=== PATIENT | male | born 1955 | race Caucasian/White ===

== ENCOUNTER 2017-02-19 13:29 | Emergency (ER) | payer OTHER ==
[~2017-02-19] VITALS: Ht 177.8 cm; Wt 71.7 kg
[~2017-02-19 13:29] MED LIST: ASPI1CHW12 PO; ATOR-24 PO; FENO160T PO; IBUP-1427 PO; OXYC-57 PO; PANT40TA PO
[2017-02-19 13:37] VITALS: TEMP 36.6; Ht 177.8 cm; Wt 71.7 kg
[2017-02-19] MEDS ORDERED: SODIUM CHLORIDE 0.9% 1000ML 1,000 ML IV STA (14:22)
[2017-02-19] MEDS ORDERED: OPTIRAY 320 IV PRN (14:30)
[2017-02-19 14:32] LABS: BASO % 0.1 %; BASO ABS # 0.01 K/uL (0-0.2); COMPLETE YES; EOS % 0.1 %; HEMATOCRIT 41.2 % (42-52); IG% 0.2 %; LYMPH % 6.3 %; LYMPH ABS # 0.62 K/uL (1.2-3.4); MEAN CELL VOLUME 79.1 fL (80-100); MEAN CORPUSCULAR HEMOGLOBIN 27.6 pg (25-34); MEAN PLATELET VOLUME 10.5 fL (7.4-10.4); MONO % 4.2 %; NEUT % 89.1 %; PLATELET COUNT 230 K/uL (130-400); RED BLOOD COUNT 5.21 M/uL (4.7-6.1); WHITE BLOOD COUNT 9.81 K/uL (4.8-10.8)
[2017-02-19 14:40] LABS: BUN/CREATININE RATIO 16.9 (10-20); CALCIUM 10.3 mg/dl (8.5-10.1); CREATININE 1.2 mg/dl (0.60-1.40); POTASSIUM 3.7 mmol/L (3.5-5.1)
[2017-02-19 14:42] LABS: ALB/GLOB RATIO 1.1 (0.9-2)
--- NOTE | 2017-02-19 14:49 | EMERGENCY ROOM VISIT NOTE ---
History First contact with patient: 14:04 Chief Complaint: ABDOMINAL PAIN Stated Complaint: PAIN IN RIGHT SIDE OF ABDOMAN Nursing Triage Summary: triage note: pt reports right abd pain since this morning. pain started at 0930 vomited after drinking water. History of Present Illness The patient is a 61 year old male who presents to the Emergency Room with complaints of right-sided abdominal pain which began this morning. The patient reports that he developed pain in the right side of his abdomen approximately 5 hours ago. He reports it has been gradually worsening since then. He took ibuprofen without relief. The patient attempted to drink water and states that he vomited immediately afterward. He has had no further episodes of vomiting and denies any nausea at this time. He rates his current discomfort a 5/10. He does not identify any aggravating or alleviating factors. He took some ibuprofen with little relief of the pain. He denies any previous episodes of pain or abdominal surgeries. He denies any kidney stones. He denies any chest pain, shortness of breath, urinary symptoms, blood in his urine, fevers/chills, or changes in bowel movements. The patient has a history of hyperlipidemia and mitral valve prolapse and is otherwise healthy. The patient denies any recent trauma. Review of Systems A complete 10-point Review of Systems was discussed with the patient, with pertinent positives and negatives listed in the History of Present Illness. All remaining Review of Systems questions can be considered negative unless otherwise specified. Past Medical/Surgical History Medical Problems: (1) Esophageal reflux (2) Heart murmur (3) Mitral valve disorder (4) Villous adenoma of colon Social History Smoking Status: Never Smoker Marital Status: Occupation Status: employed Current/Historical Medications Scheduled Aspirin (Aspirin 81 Low Dose), 81 MG PO HS Atorvastatin (Lipitor), 40 MG PO HS Fenofibrate (Tricor), 160 MG PO HS Ondasetron Odt (Zofran Odt), 4 MG SL Q6H Pantoprazole (Protonix), 40 MG PO QAM Tamsulosin Hcl (Flomax), 0.4 MG PO DAILY Scheduled PRN Ibuprofen Tab (Motrin), 600 MG PO Q6H PRN for Pain Oxycodone/Acetaminophen 5MG/325MG (Percocet 5MG/325MG), 1-2 TABS PO Q4H PRN for Pain Allergies Coded Allergies: No Known Allergies (Unverified , 02/19/17) Physical Exam Vital Signs Date Time Temp Pulse Resp B/P Pulse Ox O2 Delivery O2 Flow Rate FiO2 02/19/17 16:55 76 18 141/80 100 Room Air 02/19/17 15:36 78 18 138/92 100 Room Air 02/19/17 13:37 36.6 68 18 145/88 97 Room Air Physical Exam VITALS: Vitals are noted on the nurse's note and reviewed by myself. Vital signs stable. GENERAL: This is a 61-year-old male, in no acute distress, nondiaphoretic, well- developed well-nourished. SKIN: There is a small area of ecchymosis noted to the right mid back. HEENT: Normocephalic. PERRLA. EOMI. Nares patent. Mucous membranes moist. Neck is supple without nuchal rigidity. HEART: Regular rate and rhythm without murmurs gallops or rubs. LUNGS: Clear to auscultation bilaterally without wheezes, rales or rhonchi. ABDOMEN: Positive bowel sounds x 4. Soft, moderate tenderness of the right lower quadrant. No guarding or rebound tenderness. Negative Hubbard sign. NEURO: Patient was alert and oriented to person place and time. Medical Decision & Procedures ER Provider Diagnostic Interpretation: ABDOMEN AND PELVIS CT WITH IV CONTRAST FINDINGS: Mild nonspecific basilar parenchymal prominence. Slight basilar pleural thickening. Mild fatty infiltration of liver. Several small hypodensities less than 5 mm 2 small to quantify. Mild small bowel reactive ileus. No obstructive characteristics. Mild to moderate right hydroureteronephrosis. This appears to be secondary to an obstructing calculus distal right ureter having a maximum dimension of 2 mm. The distended right renal pelvis contains a 1.3 cm calculus. Several small bilateral renal cysts. 5 mm nonobstructing calcification lower aspect left kidney. Mild right renal perinephric change. Inguinal regions are unremarkable. There is a right-sided hydrocele. The may be a small left hydrocele. IMPRESSION: 1. 2 mm obstructing calculus distal right ureter. 2. Moderate right renal hydroureteronephrosis with a small amount of right perinephric fluid. 3. Additional 1.3 cm calculus within a distended right renal pelvis. 4. Bilateral renal cysts. 5. Nonobstructing lower pole left renal calculus. 6. Mild reactive ileus. Laboratory Results 02/19/17 14:00 Red Blood Count 5.21, Mean Corpuscular Volume 79.1, Mean Corpuscular Hemoglobin 27.6, Mean Corpuscular Hemoglobin Concent 35.0, Mean Platelet Volume 10.5, Neutrophils (%) (Auto) 89.1, Lymphocytes (%) (Auto) 6.3, Monocytes (%) (Auto) 4.2, Eosinophils (%) (Auto) 0.1, Basophils (%) (Auto) 0.1, Neutrophils # (Auto) 8.74, Lymphocytes # (Auto) 0.62, Monocytes # (Auto) 0.41, Eosinophils # (Auto) 0.01, Basophils # (Auto) 0.01 02/19/17 14:00 Test 02/19/17 14:00 02/19/17 14:10 White Blood Count 9.81 K/uL (4.8-10.8) Red Blood Count 5.21 M/uL (4.7-6.1) Hemoglobin 14.4 g/dL (14.0-18.0) Hematocrit 41.2 % (42-52) Mean Corpuscular Volume 79.1 fL (80-100) Mean Corpuscular Hemoglobin 27.6 pg (25-34) Mean Corpuscular Hemoglobin Concent 35.0 g/dl (32-36) Platelet Count 230 K/uL (130-400) Mean Platelet Volume 10.5 fL (7.4-10.4) Neutrophils (%) (Auto) 89.1 % Lymphocytes (%) (Auto) 6.3 % Monocytes (%) (Auto) 4.2 % Eosinophils (%) (Auto) 0.1 % Basophils (%) (Auto) 0.1 % Neutrophils # (Auto) 8.74 K/uL (1.4-6.5) Lymphocytes # (Auto) 0.62 K/uL (1.2-3.4) Monocytes # (Auto) 0.41 K/uL (0.11-0.59) Eosinophils # (Auto) 0.01 K/uL (0-0.5) Basophils # (Auto) 0.01 K/uL (0-0.2) RDW Standard Deviation 36.7 fL (36.4-46.3) RDW Coefficient of Variation 12.8 % (11.5-14.5) Immature Granulocyte % (Auto) 0.2 % Immature Granulocyte # (Auto) 0.02 K/uL (0.00-0.02) Anion Gap 8.0 mmol/L (3-11) Est Creatinine Clear Calc Drug Dose 65.6 ml/min Estimated GFR () 75.2 Estimated GFR (Non- 64.9 BUN/Creatinine Ratio 16.9 (10-20) Calcium Level 10.3 mg/dl (8.5-10.1) Total Bilirubin 0.5 mg/dl (0.2-1) Aspartate Amino Transf (AST/SGOT) 24 U/L (15-37) Alanine Aminotransferase (ALT/SGPT) 33 U/L (12-78) Alkaline Phosphatase 75 U/L (45-117) Total Protein 8.0 gm/dl (6.4-8.2) Albumin 4.2 gm/dl (3.4-5.0) Globulin 3.8 gm/dl (2.5-4.0) Albumin/Globulin Ratio 1.1 (0.9-2) Lipase 197 U/L (73-393) Urine Color YELLOW Urine Appearance CLEAR (CLEAR) Urine pH 6.0 (4.5-7.5) Urine Specific Enloe 1.020 (1.000-1.030) Urine Protein NEG (NEG) Urine Glucose (UA) NEG (NEG) Urine Ketones NEG (NEG) Urine Occult Blood NEG (NEG) Urine Nitrite NEG (NEG) Urine Bilirubin NEG (NEG) Urine Urobilinogen NEG (NEG) Urine Leukocyte Esterase NEG (NEG) Medications Administered Medications (Trade) Dose Ordered Sig/Juan Route Start Time Stop Time Status Last Admin Dose Admin Sodium Chloride (Nss 1000ml) 1,000 ml @ 999 mls/hr Q1H1M STAT IV 02/19/17 14:22 02/19/17 15:22 DC 02/19/17 14:22 999 MLS/HR Ketorolac Tromethamine (Toradol Inj) 30 mg NOW STAT IV 02/19/17 15:34 02/19/17 15:35 DC 02/19/17 15:38 30 MG Medical Decision Differential diagnosis includes renal calculus, pyelonephritis, small bowel obstruction, appendicitis, cholecystitis, pancreatitis, gastroenteritis, colitis , testicular torsion, among others. The patient was evaluated as above. Labs were drawn and IV access was obtained. Imaging studies were performed and read by radiology as above. The patient was medicated with 1 L normal saline solution and 30 mg Toradol IV. The patient was reassessed multiple times during their stay in the emergency department and remained in stable condition. The patient is a 56-lbiz-lod-year-old male who presents today complaining of right lower quadrant abdominal pain. The patient was moderately tender over the right lower quadrant. Labs revealed no leukocytosis, anemia or concerning electrolyte abnormalities. Urinalysis was not suggestive of infection and did not show any blood. CT of the abdomen and pelvis did show a distal right ureteral stone with moderate hydronephrosis. I do feel the patient will likely be able to pass the stone without surgical management. Will be discharged home with a urine strainer, analgesics, antiemetics and Flomax. He was given follow- up information for urology. He will return for worsening pain or any new/ concerning symptoms. Based on the patient's presentation, lab results, and imaging studies, I feel the patient is stable for outpatient treatment. The patient's case was reviewed with Dr. Rosenberg, ED attending physician, who agreed with my assessment and treatment plan. Discharge instructions were reviewed with the patient. The patient verbalized understanding of my assessment and treatment plan and was discharged home in good condition. [place] Drug Monitoring Program Search Results: patient reviewed within database, no issues identified Impression Primary Impression: Right distal ureteral calculus Departure Information Dispostion Home / Self-Care Condition GOOD Prescriptions Ondasetron Odt (ZOFRAN ODT) 4 Mg Tab 4 MG SL Q6H for Nausea, #15 TAB Prov: Silvia Landers PA-C 02/19/17 Oxycodone/Acetaminophen 5MG/325MG (PERCOCET 5MG/325MG) Tab 1-2 TABS PO Q4H Y for Pain, #20 TAB For Initial Treatment Prov: iSlvia Landers PA-C 02/19/17 Tamsulosin Hcl (FLOMAX) 0.4 Mg Cap 0.4 MG PO DAILY for 10 Days, #10 CAP Prov: Silvia Landers PA-C 02/19/17 Referrals Syd Livingston M.D. (PCP) Deng Marley M.D. Patient Instructions My [facility] Additional Instructions You have been treated in the Emergency Department today for a Kidney Stone ( Nephrolithiasis). You have been prescribed Percocet to be used for pain control. This is a narcotic medication. You cannot drive or consume alcohol while on this medicine. This medicine should only be used for pain that cannot be controlled with [id number] pain medicines. This medication may cause constipation, so you should be taking a stool softener while taking this medication. You have been prescribed and Zofran to be used for any nausea or vomiting. Take as prescribed. You have been prescribed Flomax 0.4 mg to be taken ONCE daily. This medicine has been prescribed as it can help relax the smooth muscles of the urinary tract increasing transit time of the kidney stone. For pain control, you can use the following [id number] medicines (if >12 yo): - Regular strength (325mg/tab) Tylenol (acetaminophen) 2 tabs every 4-6 hours as needed. Do not exceed 12 tablets in a 24 hour period. Avoid taking more than 4 grams (4000 mg) of Tylenol per day. This includes any other sources of acetaminophen you may take on a regular basis. - Regular strength (200 mg/tab) Advil (ibuprofen) 1-2 tabs every 4-6 hours as needed. Do not exceed a dose of 3200 mg per day. You have been provided a strainer and specimen collection cup. You should strain your urine to collect any passed stones. Your stones can be placed into the specimen cup and taken to your Urologist for further evaluation. You have been provided the contact information for the on-call Urologist. If you do not pass the stone within 3-4 days, call them to schedule a follow-up appointment. Return to the Emergency Department if your symptoms persist despite the treatment plan outlined above or if you develop the following symptoms: intractable pain, fever, chills, or large amounts of blood in your urine.
[2017-02-19 14:56] LABS: URINE APPEARANCE CLEAR (CLEAR); URINE BILIRUBIN NEG (NEG); URINE COLOR YELLOW; URINE NITRITE NEG (NEG); UROBILINOGEN NEG (NEG); ZZUR CULT IF INDIC CLEAN CATCH NO
[2017-02-19 15:06] LABS: MANUAL MICROSCOPIC REQUIRED? NO; REVIEW REQ? NO
--- NOTE | 2017-02-19 15:31 | DIAGNOSTIC IMAGING REPORT ---
ABDOMEN AND PELVIS CT WITH IV CONTRAST CT DOSE: 570.60 mGy.cm HISTORY: Pain RLQ pain, vomiting TECHNIQUE: Multiaxial CT images of the abdomen and pelvis were performed following the use of intravenous contrast. COMPARISON STUDY: None. FINDINGS: Mild nonspecific basilar parenchymal prominence. Slight basilar pleural thickening. Mild fatty infiltration of liver. Several small hypodensities less than 5 mm 2 small to quantify. Mild small bowel reactive ileus. No obstructive characteristics. Mild to moderate right hydroureteronephrosis. This appears to be secondary to an obstructing calculus distal right ureter having a maximum dimension of 2 mm. The distended right renal pelvis contains a 1.3 cm calculus. Several small bilateral renal cysts. 5 mm nonobstructing calcification lower aspect left kidney. Mild right renal perinephric change. Inguinal regions are unremarkable. There is a right-sided hydrocele. The may be a small left hydrocele. IMPRESSION: 1. 2 mm obstructing calculus distal right ureter. 2. Moderate right renal hydroureteronephrosis with a small amount of right perinephric fluid. 3. Additional 1.3 cm calculus within a distended right renal pelvis. 4. Bilateral renal cysts. 5. Nonobstructing lower pole left renal calculus. 6. Mild reactive ileus. Electronically signed by: Leonid Escalera M.D. 02/19/2017 3:30 PM Dictated Date/Time: 02/19/2017 3:26 PM
[2017-02-19] MEDS ORDERED: KETOROLAC TROMETHAMINE 30 MG/ML VIAL IV STA (15:34)
[2017-02-19] MEDS ORDERED: OXYC-57 PO (16:12)
[2017-02-19] MEDS ORDERED: ONDA4TAB10 SL (16:12)
[2017-02-19] MEDS ORDERED: TAMS0.4C38 PO (16:12)
[2017-02-19 16:55] VITALS: BP 141/80; PULSE 76; O2SAT 100
[2017-07-02] MEDS ORDERED: OXYC-57 PO (07:13)
[2017-09-16] MEDS ORDERED: HYG/25 PO (12:21)
[2017-10-08] MEDS ORDERED: HYDR-5688 PO (10:40)
== END 2017-02-19 16:57 | disposition home or self-care (01) ==
LOC: C.EDB 13:31
DX: N13.2 Hydronephrosis with renal and ureteral calculous obstruction (principal); E78.5 Hyperlipidemia, unspecified; I34.1 Nonrheumatic mitral (valve) prolapse; K21.9 Gastro-esophageal reflux disease without esophagitis; Z79.82 Long term (current) use of aspirin; Z79.899 Other long term (current) drug therapy

== ENCOUNTER → 2017-05-07 | Outpatient (CLI) | payer OTHER ==
[~2017-05-07] MED LIST changes: +HYDR-5688 PO; +HYG/25 PO; -IBUP-1427 PO; +ONDA4TAB10 SL
[2017-05-07 10:47] LABS: BASO % 0.8 %; BASO ABS # 0.04 K/uL (0-0.2); COMPLETE YES; EOS % 5.2 %; IG% 0.2 %; LYMPH % 31.6 %; LYMPH ABS # 1.59 K/uL (1.2-3.4); MEAN CELL VOLUME 81.3 fL (80-100); MEAN CORPUSCULAR HGB CONC 33.2 g/dl (32-36); MEAN PLATELET VOLUME 10.9 fL (7.4-10.4); MONO % 5.8 %; NEUT % 56.4 %; PLATELET COUNT 234 K/uL (130-400); RED BLOOD COUNT 5.04 M/uL (4.7-6.1); WHITE BLOOD COUNT 5.03 K/uL (4.8-10.8)
[2017-05-07 10:59] LABS: ALT/SGPT 27 U/L (12-78); AST/SGOT 20 U/L (15-37); BLOOD UREA NITROGEN 20 mg/dl (7-18); BUN/CREATININE RATIO 21.8 (10-20); CARBON DIOXIDE 27 mmol/L (21-32); CHLORIDE 106 mmol/L (98-107); CREATININE 0.91 mg/dl (0.60-1.40); GLUCOSE 92 mg/dl (70-99); POTASSIUM 3.7 mmol/L (3.5-5.1); SODIUM 142 mmol/L (136-145); TRIGLYCERIDES 47 mg/dl (0-150); VERY LOW DENSITY LIPOPROT CALC 9 mg/dl
[2017-05-07 11:09] LABS: CHOLESTEROL 125 mg/dl (0-200); CHOLESTEROL/HDL RATIO 2.4; HDL CHOLESTEROL 53 mg/dl; LDL CHOLESTEROL CALCULATED 63 mg/dl; PROSTATE SPECIFIC ANTIGEN 0.684 ng/ml (0.000-4.000)
[2017-05-07 11:25] LABS: ESTIMATED AVERAGE GLUCOSE 128 mg/dl; HA1C FLAG Normal (Normal)
[2017-05-07 11:33] LABS: URINE APPEARANCE CLOUDY (CLEAR); URINE BILIRUBIN NEG (NEG); URINE COLOR YELLOW; URINE NITRITE NEG (NEG); URINE SPECIFIC GRAVITY 1.019 (1.000-1.030); UROBILINOGEN NEG (NEG)
[2017-05-07 11:35] LABS: MANUAL MICROSCOPIC REQUIRED? NO; REVIEW REQ? NO
[2017-05-07 12:19] LABS: CALCIUM 9.4 mg/dl (8.5-10.1)
== END | disposition home or self-care (01) ==
LOC: C.LABBC 08:38
PROVIDERS: ATTEND Internal Medicine
DX: E78.00 Pure hypercholesterolemia, unspecified (principal)

== ENCOUNTER → 2017-06-15 | Outpatient (CLI) | payer OTHER ==
[~2017-06-15] MED LIST changes: -HYDR-5688 PO; -HYG/25 PO
--- NOTE | 2017-06-15 09:13 | DIAGNOSTIC IMAGING REPORT ---
KUB CLINICAL HISTORY: Nephrolithiasis. COMPARISON STUDY: CT of the abdomen and pelvis February 19, 2017. FINDINGS: A 1.9 x 1.1 cm right renal pelvis calculus is unchanged. There is an 8 mm calculus within the lower pole of the left kidney. A few smaller bilateral renal calculi are noted. No ureteral calculi are identified. The distal right ureteral calculus shown on CT of February 19, 2017 is not visualized. The bowel gas pattern is normal. IMPRESSION: 1. 1.9 x 1.1 cm right renal pelvis calculus and bilateral nephrolithiasis. 2. No ureteral calculi. Electronically signed by: Flaco Asher M.D. 06/15/2017 9:11 AM Dictated Date/Time: 06/15/2017 9:09 AM
== END | disposition home or self-care (01) ==
LOC: C.RADBC 08:56
PROVIDERS: ATTEND Urology
DX: N20.0 Calculus of kidney (principal)

== ENCOUNTER → 2017-06-16 | Outpatient (CLI) | payer OTHER | END | disposition home or self-care (01) | LOC: C.LABSPEC 17:02 | PROVIDERS: ATTEND Urology | DX: N20.0 Calculus of kidney (principal) ==

== ENCOUNTER → 2017-06-18 | Outpatient (CLI) | payer OTHER ==
--- NOTE | 2017-06-18 12:38 | DIAGNOSTIC IMAGING REPORT ---
CHEST 2 VIEWS ROUTINE CLINICAL HISTORY: 61 years-old Male presenting with nephrolithiasis. TECHNIQUE: PA and lateral views of the chest were obtained. COMPARISON: 10/02/2016. FINDINGS: Cardiomediastinal silhouette normal. Lungs and pleural spaces clear. Multilevel degenerative changes of the thoracic spine. Upper abdomen normal. IMPRESSION: 1. No acute cardiopulmonary disease. Electronically signed by: Jeronimo Mosquera M.D. 06/18/2017 12:37 PM Dictated Date/Time: 06/18/2017 12:36 PM
[2017-06-18 13:31] LABS: BASO % 0.9 %; BASO ABS # 0.04 K/uL (0-0.2); COMPLETE YES; HEMATOCRIT 41.2 % (42-52); LYMPH % 34.1 %; LYMPH ABS # 1.47 K/uL (1.2-3.4); MEAN CELL VOLUME 81.3 fL (80-100); MEAN CORPUSCULAR HEMOGLOBIN 28.2 pg (25-34); MEAN CORPUSCULAR HGB CONC 34.7 g/dl (32-36); MEAN PLATELET VOLUME 11.4 fL (7.4-10.4); PLATELET COUNT 230 K/uL (130-400); RED BLOOD COUNT 5.07 M/uL (4.7-6.1); WHITE BLOOD COUNT 4.31 K/uL (4.8-10.8)
[2017-06-18 13:42] LABS: BLOOD UREA NITROGEN 14 mg/dl (7-18); BUN/CREATININE RATIO 16.9 (10-20); CALCIUM 9.7 mg/dl (8.5-10.1); CARBON DIOXIDE 27 mmol/L (21-32); CHLORIDE 109 mmol/L (98-107); CREATININE 0.85 mg/dl (0.60-1.40); GLUCOSE 96 mg/dl (70-99); POTASSIUM 3.7 mmol/L (3.5-5.1); SODIUM 141 mmol/L (136-145)
== END | disposition home or self-care (01) ==
LOC: C.RADBC 11:05
PROVIDERS: ATTEND Urology
DX: N20.0 Calculus of kidney (principal); N40.0 Benign prostatic hyperplasia without lower urinary tract symptoms

== ENCOUNTER → 2017-07-02 | Day surgery (SDC) | payer OTHER ==
[2017-06-28 13:18] VITALS: Ht 177.8 cm; Wt 71.8 kg
--- NOTE | 2017-07-01 18:07 | DIAGNOSTIC IMAGING REPORT ---
KUB CLINICAL HISTORY: N20.0 Nephrolithiasis PREOP STUDY COMPARISON STUDY: 06/15/2017 FINDINGS: There is no pathologic bowel dilatation. A 21 mm calcification projects over the right renal pelvis. There are multiple left renal ossifications consistent with calculi. The largest is a lower pole cluster measuring 8 mm in aggregate. IMPRESSION: Bilateral nephrolithiasis. Electronically signed by: Simeon Gates M.D. 07/01/2017 6:06 PM Dictated Date/Time: 07/01/2017 6:04 PM
[~2017-07-02] VITALS: Ht 177.8 cm; Wt 71.8 kg
[~2017-07-02] MED LIST changes: +ATROPINE SULFATE 0.1 MG/ML 5ML SYR IV PRN; +CIPROFLOXACIN / D5W 400 MG IV SCH; +DEXAMETHASONE SOD INJ 4 MG/ML VIAL ONE; +EpHEDrine SULFATE INJ 50 MG/ML AMP IV PRN; +FENTANYL CITRATE INJ 50 MCG/1 ML 2 ML VIAL ONE; +LACTATED RINGER'S 1000ML 1,000 ML IV SCH; +LIDOCAINE HCL 2% 2 ML VIAL (20MG/ML) ONE; +MIDAZOLAM HCL 1 MG/ML 2ML VIAL ONE; -ONDA4TAB10 SL; +ONDANSETRON INJ 2 MG/ML 2 ML VIAL ONE; +OXYCODONE/ACETAMINOPHEN 5-325 TAB PO PRN; +PROPOFOL IV EMULSION 10 MG/ML 20 ML VIAL IV ONE
--- NOTE | 2017-07-02 06:42 | History & Physical Bridge Note ---
H&P Re-Evaluation Bridge Note: I have examined the patient, reviewed the History & Physical and in the interval since the performance of the History & Physical I have noted the following changes of clinical significance: No changes noted
--- NOTE | 2017-07-02 07:11 | [facility] Operative Report ---
Operative Report Operative Date Jul 02, 2017. Pre-Operative Diagnosis Bilateral renal stones Post-Operative Diagnosis same Procedure(s) Performed left ESWL Surgeon NELLY Resistance Welder Surgeon(s) NONE Estimated Blood Loss NONE Findings BILATERAL STONES Specimens NONE Drains NONE Anesthesia GENERAL Complication(s) None Disposition Recovery Room / PACU Indications BILATERAL RENAL STONES Description of Procedure Patient was identified in the preoperative holding area, appropriate informed consent was reviewed and completed and the patient was transported to the operating suite. Upon arrival appropriate preoperative antibiotics were administered and general anesthesia induced. The patient was placed in supine position and the stone was localized under fluoroscopy. A total of [_2500__] shocks were delivered to the stone. There appeared to be good fragmentation of the stone. Details of this procedure can be found on the [facility] information sheet. At the conclusion of the case the patient was extubated and taken to the PACU in stable condition. There were no complications. I attest to the content of the Intraoperative Record and any orders documented therein. Any exceptions are noted below.
--- NOTE | 2017-07-02 07:14 | Discharge Instructions-SurgCtr ---
Discharge Instructions Date of Service Jul 02, 2017. Visit Reason for Visit: Stones Discharge Discharge Diagnosis / Problem: STONES Discharge Goals Goal(s): Therapeutic intervention Medications Stopped Medications Name(s): stopped ASA and Tricor Activity Recommendations Activity Limitations: resume your previous activity (TAKE IT EASY TODAY) MEDICATIONS: Resume previous medications unless instructed otherwise by your surgeon. Resume pre-ESWL medication except for aspirin, coumadin or other blood thinners. __ Toradol 10 mg every 6 hours for initial pain. __ Lortab 5 mg 1-2 every 4 hours for pain. _X_ Percocet 5 mg 1-2 every 4 hours for pain. __ Macrodantin 50 mg x 3 a day. __ Flomax 1 tab daily one half (1/2) hour after supper. SPECIAL CARE INSTRUCTIONS: 1. Get KUB (x-ray) _X_ day before or day of office visit and bring x-ray to office __ get x-ray 2 days before and tell office you are getting x-rays when you call for the appointment. 2. Strain ALL urine. 3. Please call if you have a fever, chills, severe pain, or constant dribbling of urine. 4. Office phone number . FOLLOW UP VISIT: Please call the office to schedule a follow-up appointment at . Anesthesia . Post Anesthesia Instructions: If you have had General Anesthesia or IV Sedation: * Do not drive today. * Resume driving when surgeon permits. * Do not make important decisions or sign legal documents today. * Call surgeon for: 1. Temperature elevations greater than 101 degrees F. 2. Uncontrollable pain. 3. Excessive bleeding. 4. Persistent nausea and vomiting. 5. Medication intolerance (nausea, vomiting or rash). * For nausea and vomiting use only clear liquids such as: tea, soda, bouillon until nausea subsides, then gradually increase diet as tolerated. * If you have any concerns or questions, call your surgeon's office. If physician is unavailable and it is an emergency, call 911 or go to the nearest emergency room. . Diet Recommendations Home Diet: resume previous diet Procedures Procedures Performed: left ESWL Pending Studies Studies pending at discharge: no Medical Emergencies . Who to Call and When: Medical Emergencies: If at any time you feel your situation is an emergency, please call 911 immediately. . Non-Emergent Contact Non-Emergency issues call your: Urologist Call Non-Emergent contact if: temperature is above 101.5, your pain is not controlled . . "Provider Documentation" section prepared by Gary Nuñez. . [place] Drug Monitoring [place] Search Results: patient reviewed within database
[2017-07-02 08:30] VITALS: TEMP 36.6
--- NOTE | 2017-07-02 08:38 | Anesthesia Progress Nt - [facility] ---
Anesthesia Post Op Note Date & Time Jul 02, 2017 at 08:38 Vital Signs Pain Intensity: 0 Vital Signs Past 12 Hours Date Time Temp Pulse Resp B/P (MAP) Pulse Ox O2 Delivery O2 Flow Rate FiO2 07/02/17 08:30 36.6 67 16 124/80 (95) 99 Room Air 07/02/17 08:21 36.5 67 16 126/78 100 Room Air 07/02/17 08:17 74 12 07/02/17 08:17 71 12 99 07/02/17 08:16 126/78 07/02/17 08:12 75 12 07/02/17 08:12 75 12 100 07/02/17 08:11 123/69 07/02/17 08:07 64 13 07/02/17 08:07 64 13 100 07/02/17 08:06 113/70 07/02/17 08:02 61 12 100 07/02/17 08:02 61 12 07/02/17 08:01 114/75 07/02/17 07:57 59 9 07/02/17 07:57 59 9 100 07/02/17 07:56 112/66 07/02/17 07:52 59 12 07/02/17 07:52 59 12 100 07/02/17 07:51 104/68 07/02/17 07:47 61 12 100 07/02/17 07:47 47 12 07/02/17 07:46 110/68 07/02/17 07:43 111/59 07/02/17 07:43 111/59 07/02/17 07:42 36.3 61 14 111/59 99 Mask 8 07/02/17 06:24 36.6 66 16 118/74 (89) 99 Room Air Notes Mental Status: alert / awake / arousable, participated in evaluation Pt Amnestic to Procedure: Yes Nausea / Vomiting: adequately controlled Pain: adequately controlled Airway Patency, RR, SpO2: stable & adequate BP & HR: stable & adequate Hydration State: stable & adequate Anesthetic Complications: no major complications apparent
[2017-07-02 09:01] VITALS: BP 116/73; PULSE 60; O2SAT 100
== END | disposition home or self-care (01) ==
LOC: X.SURG 06:04
PROVIDERS: ATTEND Urology
DX: N20.0 Calculus of kidney (principal); N40.0 Benign prostatic hyperplasia without lower urinary tract symptoms; I34.1 Nonrheumatic mitral (valve) prolapse; I34.0 Nonrheumatic mitral (valve) insufficiency; I51.7 Cardiomegaly; E78.00 Pure hypercholesterolemia, unspecified; K21.9 Gastro-esophageal reflux disease without esophagitis; D64.9 Anemia, unspecified; F41.9 Anxiety disorder, unspecified; Z79.82 Long term (current) use of aspirin; Z79.899 Other long term (current) drug therapy

== ENCOUNTER → 2017-07-10 | Outpatient (CLI) | payer OTHER ==
[~2017-07-10] MED LIST changes: -ATROPINE SULFATE 0.1 MG/ML 5ML SYR IV PRN; -CIPROFLOXACIN / D5W 400 MG IV SCH; -DEXAMETHASONE SOD INJ 4 MG/ML VIAL ONE; -EpHEDrine SULFATE INJ 50 MG/ML AMP IV PRN; -FENTANYL CITRATE INJ 50 MCG/1 ML 2 ML VIAL ONE; -LACTATED RINGER'S 1000ML 1,000 ML IV SCH; -LIDOCAINE HCL 2% 2 ML VIAL (20MG/ML) ONE; -MIDAZOLAM HCL 1 MG/ML 2ML VIAL ONE; -ONDANSETRON INJ 2 MG/ML 2 ML VIAL ONE; -OXYCODONE/ACETAMINOPHEN 5-325 TAB PO PRN; -PROPOFOL IV EMULSION 10 MG/ML 20 ML VIAL IV ONE
--- NOTE | 2017-07-10 09:10 | DIAGNOSTIC IMAGING REPORT ---
KUB CLINICAL HISTORY: Nephrolithiasis. COMPARISON STUDY: KUB July 01, 2017. FINDINGS: A 1.6 x 1.6 cm right renal pelvis calculus is noted. Multiple bilateral renal calculi are noted. Left renal calculus burden appears diminished since prior exam. A few left lateral abdominal calcifications are unlikely to represent urinary calculi. No definite ureteral calculi are identified. Note is made of an 8 mm left pelvic density. IMPRESSION: 1. 1.6 cm right renal pelvis calculus. 2. Bilateral nephrolithiasis. Left renal calculus burden appears diminished since prior exam. 3. 8 mm left pelvic density. This is likely artifactual although a distal left ureteral calculus could appear similar. Electronically signed by: Flaco Asher M.D. 07/10/2017 9:08 AM Dictated Date/Time: 07/10/2017 9:02 AM
== END | disposition home or self-care (01) ==
LOC: C.RADBC 08:46
PROVIDERS: ATTEND Urology
DX: N20.0 Calculus of kidney (principal)

== ENCOUNTER → 2017-07-16 | Outpatient (CLI) | payer OTHER ==
[2017-07-16 13:49] LABS: CALCIUM 9.6 mg/dl (8.5-10.1)
[2017-07-16 14:03] LABS: THYROID STIMULATING HORMONE 1.35 uIu/ml (0.300-4.500)
== END | disposition home or self-care (01) ==
LOC: C.LAB1850 12:11
PROVIDERS: ATTEND Internal Medicine
DX: E78.00 Pure hypercholesterolemia, unspecified (principal)

== ENCOUNTER → 2017-10-08 | Day surgery (SDC) | payer OTHER ==
[2017-09-16 12:22] VITALS: Ht 177.8 cm; Wt 69.5 kg
[~2017-10-08] VITALS: Ht 177.8 cm; Wt 69.5 kg
[~2017-10-08] MED LIST changes: +ATROPINE SULFATE 0.1 MG/ML 5ML SYR IV PRN; +CIPROFLOXACIN 400MG / D5W IV SCH; +DEXAMETHASONE SOD INJ 4 MG/ML VIAL ONE; +EpHEDrine SULFATE INJ 50 MG/ML AMP IV PRN; +FENTANYL CITRATE INJ 50 MCG/1 ML 2 ML VIAL IV PRN; +FENTANYL CITRATE INJ 50 MCG/1 ML 2 ML VIAL ONE; +HYDR-5688 PO; +HYG/25 PO; +LACTATED RINGER'S 1000ML 1,000 ML IV SCH; +LIDOCAINE HCL 2% 2 ML VIAL (20MG/ML) ONE; +MIDAZOLAM HCL 1 MG/ML 2ML VIAL ONE; +ONDANSETRON INJ 2 MG/ML 2 ML VIAL IV PRN; +ONDANSETRON INJ 2 MG/ML 2 ML VIAL ONE; -OXYC-57 PO; +OXYCODONE/ACETAMINOPHEN 5-325 TAB PO PRN; +PROPOFOL IV EMULSION 10 MG/ML 20 ML VIAL IV ONE; +SODIUM CHLORIDE 0.9% 1000ML 1,000 ML IV SCH
--- NOTE | 2017-10-08 09:06 | DIAGNOSTIC IMAGING REPORT ---
KUB CLINICAL HISTORY: 62 years-old Male presenting with N20.0 Calculus of kidney, follow-up. TECHNIQUE: Single supine view of the abdomen was obtained. COMPARISON: 07/10/2017. FINDINGS: Normal bowel gas pattern. No gross evidence of free intraperitoneal gas. Anastomotic suture line noted in the right lower quadrant. Redemonstration of the large ovoid right renal calculus projecting over the renal pelvis, measuring nearly 20 mm in maximal diameter. Additional bilateral nephrolithiasis evident on prior CT from 02/19/2017 are not immediately apparent. No calcification projects along the courses of the ureters. Previously suggested calcification in the region of the distal left ureter is not apparent. Osseous structures normal. IMPRESSION: 1. No change in position of the large right renal calculus. 2. Bilateral nephrolithiasis not as well demonstrated on the current radiograph and better characterized on prior CT from 02/19/2017. 3. Previously suggested calcification in the region of the distal left ureter is no longer apparent, possibly indicating passage or artifact. Electronically signed by: Jeronimo Mosquera M.D. 10/08/2017 9:05 AM Dictated Date/Time: 10/08/2017 9:01 AM
--- NOTE | 2017-10-08 10:46 | Discharge Instructions-SurgCtr ---
Discharge Instructions Date of Service Oct 08, 2017. Visit Reason for Visit: Stones Discharge Discharge Diagnosis / Problem: stones Discharge Goals Goal(s): Decrease discomfort, Improve function, Increase independence, Improve disease control Medications Stopped Medications Name(s): HELD ASPIRIN FOR TEN DAYS Activity Recommendations Activity Limitations: resume your previous activity Lifting Limitations: none Exercise/Sports Limitations: none May Resume Sexual Activity: when tolerated Shower/Bathe: no limitations Driving or Machine Use: resume 1 day after discharge Anesthesia . Post Anesthesia Instructions: If you have had General Anesthesia or IV Sedation: * Do not drive today. * Resume driving when surgeon permits. * Do not make important decisions or sign legal documents today. * Call surgeon for: 1. Temperature elevations greater than 101 degrees F. 2. Uncontrollable pain. 3. Excessive bleeding. 4. Persistent nausea and vomiting. 5. Medication intolerance (nausea, vomiting or rash). * For nausea and vomiting use only clear liquids such as: tea, soda, bouillon until nausea subsides, then gradually increase diet as tolerated. * If you have any concerns or questions, call your surgeon's office. If physician is unavailable and it is an emergency, call 911 or go to the nearest emergency room. . Diet Recommendations Home Diet: no limitations, resume previous diet Pending Studies Studies pending at discharge: no Medical Emergencies . Who to Call and When: Medical Emergencies: If at any time you feel your situation is an emergency, please call 911 immediately. . Non-Emergent Contact Non-Emergency issues call your: Urologist Call Non-Emergent contact if: you have a fever, temperature is above 101.5, your pain is not controlled, your pain is worsening . . "Provider Documentation" section prepared by Binu Vann. . [place] Drug Monitoring Program Search Results: patient reviewed within database, no issues identified Drug Monitoring Findings: several prior rx's - all seem appropriate
--- NOTE | 2017-10-08 11:17 | [facility] Operative Report ---
Operative Report Operative Date Oct 08, 2017. Pre-Operative Diagnosis Right Renal Stone Post-Operative Diagnosis Same Procedure(s) Performed Right Extracorporeal Shock Wave Lithotripsy Surgeon Dr. Corin Cruz Artificial Intelligence Specialist Surgeon(s) None Estimated Blood Loss 0 mL Findings Very large right renal calculus - carefully attempted to fragment the edges Specimens None Drains none Anesthesia Gen. Complication(s) None Disposition Recovery Room / PACU (stable) Indications Right renal stone Description of Procedure The patient was identified in the preoperative holding area, appropriate informed consent was reviewed and completed and the patient was transported to the operating suite. Upon arrival appropriate preoperative antibiotics were administered and general anesthesia induced. The patient was placed in supine position and the stone was localized under fluoroscopy. A total of 2500 shocks were delivered to the stone. There appeared to be good fragmentation of the stone. Details of this procedure can be found on the [facility] information sheet. At the conclusion of the case the patient was extubated and taken to the PACU in stable condition. There were no complications. I attest to the content of the Intraoperative Record and any orders documented therein. Any exceptions are noted below.
--- NOTE | 2017-10-08 12:03 | Anesthesia Progress Nt - [facility] ---
Anesthesia Post Op Note Date & Time Oct 08, 2017 at 12:03 Vital Signs Pain Intensity: 0 Vital Signs Past 12 Hours Date Time Temp Pulse Resp B/P (MAP) Pulse Ox O2 Delivery O2 Flow Rate FiO2 10/08/17 12:01 118/72 10/08/17 11:57 74 18 10/08/17 11:57 74 18 97 10/08/17 11:55 128/73 10/08/17 11:52 59 21 10/08/17 11:52 67 21 100 10/08/17 11:50 120/81 10/08/17 11:47 67 27 100 10/08/17 11:47 50 27 10/08/17 11:45 116/78 10/08/17 11:42 71 18 10/08/17 11:42 72 18 100 10/08/17 11:40 115/69 10/08/17 11:37 65 22 100 10/08/17 11:37 56 22 10/08/17 11:35 102/76 10/08/17 11:32 60 24 10/08/17 11:32 64 24 100 10/08/17 11:30 113/70 10/08/17 11:27 61 13 10/08/17 11:27 62 13 100 10/08/17 11:25 106/76 10/08/17 11:22 36.6 64 16 119/76 98 Mask 6 10/08/17 11:22 119/76 Notes Mental Status: alert / awake / arousable, participated in evaluation Pt Amnestic to Procedure: Yes Nausea / Vomiting: adequately controlled Pain: adequately controlled Airway Patency, RR, SpO2: stable & adequate BP & HR: stable & adequate Hydration State: stable & adequate Anesthetic Complications: no major complications apparent
[2017-10-08 12:29] VITALS: TEMP 36.6
[2017-10-08 14:05] VITALS: BP 113/67; PULSE 71; O2SAT 98
== END | disposition home or self-care (01) ==
LOC: X.SURG 08:56
PROVIDERS: ATTEND Urology
DX: N20.0 Calculus of kidney (principal); I34.1 Nonrheumatic mitral (valve) prolapse; I34.0 Nonrheumatic mitral (valve) insufficiency; I51.7 Cardiomegaly; E78.00 Pure hypercholesterolemia, unspecified; D64.9 Anemia, unspecified; R73.9 Hyperglycemia, unspecified; K21.9 Gastro-esophageal reflux disease without esophagitis; N40.0 Benign prostatic hyperplasia without lower urinary tract symptoms; M54.30 Sciatica, unspecified side; F41.9 Anxiety disorder, unspecified; Z79.82 Long term (current) use of aspirin; Z79.899 Other long term (current) drug therapy

== ENCOUNTER → 2017-10-18 | Outpatient (CLI) | payer OTHER ==
[~2017-10-18] MED LIST changes: -ATROPINE SULFATE 0.1 MG/ML 5ML SYR IV PRN; -CIPROFLOXACIN 400MG / D5W IV SCH; -DEXAMETHASONE SOD INJ 4 MG/ML VIAL ONE; -EpHEDrine SULFATE INJ 50 MG/ML AMP IV PRN; -FENTANYL CITRATE INJ 50 MCG/1 ML 2 ML VIAL IV PRN; -FENTANYL CITRATE INJ 50 MCG/1 ML 2 ML VIAL ONE; -LACTATED RINGER'S 1000ML 1,000 ML IV SCH; -LIDOCAINE HCL 2% 2 ML VIAL (20MG/ML) ONE; -MIDAZOLAM HCL 1 MG/ML 2ML VIAL ONE; -ONDANSETRON INJ 2 MG/ML 2 ML VIAL IV PRN; -ONDANSETRON INJ 2 MG/ML 2 ML VIAL ONE; -OXYCODONE/ACETAMINOPHEN 5-325 TAB PO PRN; -PROPOFOL IV EMULSION 10 MG/ML 20 ML VIAL IV ONE; -SODIUM CHLORIDE 0.9% 1000ML 1,000 ML IV SCH
--- NOTE | 2017-10-18 15:36 | DIAGNOSTIC IMAGING REPORT ---
KUB HISTORY: CALCULUS OF KIDNEY COMPARISON: KUB 10/08/2017. FINDINGS: The bowel gas pattern is unremarkable. There are no dilated loops of small bowel to suggest an obstruction. Significant decrease in size in the stone within the right kidney. There are few small fragments remaining within the lower pole with the largest measuring 5 mm. There is a new 6 mm calcification in the expected location of the proximal right ureter. There is a large column of stones within the distal right ureter. These measure a total length of 4.7 cm. No pneumoperitoneum or pneumatosis. There are few punctate left renal calculi again noted. IMPRESSION: 1. Interval fragmentation of the large right renal stone with a few small fragments remaining within the lower pole of the right kidney. There is also a 6 mm stone within the proximal right ureter and a large column of stones within the distal right ureter measuring a total length of 4.7 cm. 2. Stable left-sided nephrolithiasis. Electronically signed by: Alex Tariq M.D. 10/18/2017 3:35 PM Dictated Date/Time: 10/18/2017 3:32 PM
== END | disposition home or self-care (01) ==
LOC: C.LABBC 15:03
PROVIDERS: ATTEND Urology
DX: N20.0 Calculus of kidney (principal)

== ENCOUNTER → 2017-11-01 | Outpatient (CLI) | payer OTHER ==
--- NOTE | 2017-11-01 09:33 | DIAGNOSTIC IMAGING REPORT ---
KUB CLINICAL HISTORY: 62 years-old Male presenting with N20.0 [id number]. TECHNIQUE: Single supine view of the abdomen was obtained. COMPARISON: 10/18/2017. FINDINGS: Mild stool burden throughout the colon slightly decreased from prior. Bilateral nephrolithiasis. There has been interval migration of a right renal calculus into the proximal right ureter. Previously at this site a single calculus was noted though now 2 adjacent calculi are evident, which each measure 7 mm in length. Persistent column of calculi in the distal right ureter. Osseous structures normal. Lung bases clear. IMPRESSION: 1. Interval migration of a right renal calculus into the right ureter, where 2 adjacent 7 mm calculi now present. Persistent column of calculi in the distal right ureter. 2. Bilateral nephrolithiasis. Electronically signed by: Jeronimo Mosquera M.D. 11/01/2017 9:32 AM Dictated Date/Time: 11/01/2017 9:29 AM
== END | disposition home or self-care (01) ==
LOC: C.RADBC 09:03
PROVIDERS: ATTEND Urology
DX: N20.0 Calculus of kidney (principal)

== ENCOUNTER → 2017-11-03 | Outpatient (CLI) | payer OTHER ==
[~2017-11-03] MED LIST changes: -HYDR-5688 PO
[2017-11-03 15:37] LABS: BASO % 0.8 %; BASO ABS # 0.04 K/uL (0-0.2); COMPLETE YES; HEMATOCRIT 39.2 % (42-52); LYMPH % 27.3 %; LYMPH ABS # 1.38 K/uL (1.2-3.4); MEAN CELL VOLUME 81.2 fL (80-100); MEAN CORPUSCULAR HGB CONC 34.4 g/dl (32-36); MEAN PLATELET VOLUME 11.2 fL (7.4-10.4); MONO % 6.1 %; NEUT % 61.8 %; PLATELET COUNT 296 K/uL (130-400); RED BLOOD COUNT 4.83 M/uL (4.7-6.1); WHITE BLOOD COUNT 5.05 K/uL (4.8-10.8)
[2017-11-03 15:47] LABS: BLOOD UREA NITROGEN 17 mg/dl (7-18); BUN/CREATININE RATIO 14.9 (10-20); CARBON DIOXIDE 30 mmol/L (21-32); CHLORIDE 101 mmol/L (98-107); CREATININE 1.12 mg/dl (0.60-1.40); SODIUM 135 mmol/L (136-145)
[2017-11-03 17:29] LABS: URINE APPEARANCE CLEAR (CLEAR); URINE BILIRUBIN NEG (NEG); URINE COLOR YELLOW; URINE NITRITE NEG (NEG); URINE PH 7.5 (4.5-7.5); URINE SPECIFIC GRAVITY 1.011 (1.000-1.030); UROBILINOGEN NEG (NEG)
[2017-11-03 17:43] LABS: MANUAL MICROSCOPIC REQUIRED? NO; REVIEW REQ? NO
== END | disposition home or self-care (01) ==
LOC: C.LABBC 10:55
PROVIDERS: ATTEND Urology
DX: N20.0 Calculus of kidney (principal)

== ENCOUNTER → 2017-11-11 | Outpatient (CLI) | payer OTHER ==
[~2017-11-11] MED LIST changes: +NITR1CAP33 PO; +OXYC-57 PO; +TAMS0.4C38 PO
--- NOTE | 2017-11-11 13:51 | DIAGNOSTIC IMAGING REPORT ---
KUB HISTORY: Follow-up study in a patient with nephrolithiasis Calculus of kidney COMPARISON: KUB 11/01/2017 FINDINGS: The bowel gas pattern is non-obstructive. There is no organomegaly. Persistent multiple small punctate calculi are seen within the region of the distal right ureter just slightly decreased from comparison 11/01/2017. There are two 7 mm calculi in the region of the mid right ureter at the level of L3-L4 which have migrated a few millimeters inferiorly from comparison study. Bilateral nephrolithiasis redemonstrated, partially obscured by bowel gas. The previously described 6 mm calculus of left kidney is not definitely seen. No new ureteral calculi. No pneumoperitoneum or pneumatosis. No fracture. IMPRESSION: 1. Decreased amount of punctate calculi of the distal right ureter. 2. The two 7 mm calculi of the mid right ureter demonstrate a few millimeters of caudal migration, now present at the level of L3-L4. 3. Bilateral nephrolithiasis. Electronically signed by: Tashi Washington M.D. 11/11/2017 1:50 PM Dictated Date/Time: 11/11/2017 1:46 PM
== END | disposition home or self-care (01) ==
LOC: C.RADBC 13:14
PROVIDERS: ATTEND Urology
DX: N20.2 Calculus of kidney with calculus of ureter (principal)

== ENCOUNTER → 2017-11-29 | Outpatient (CLI) | payer OTHER ==
[~2017-11-29] MED LIST changes: -NITR1CAP33 PO; -TAMS0.4C38 PO
--- NOTE | 2017-11-29 08:39 | DIAGNOSTIC IMAGING REPORT ---
KUB CLINICAL HISTORY: Calculus of kidney COMPARISON STUDY: 11/11/2017 FINDINGS: There are clustered lower pole right renal calculi measuring 12 mm in aggregate. The previously identified right ureteral calculi are no longer visualized. A tiny left renal calculus is also suspected. There is no pathologic bowel dilatation. IMPRESSION: 1. Bilateral nephrolithiasis. 2. Interval resolution of the right ureteral calculi. Electronically signed by: Simeon Gates M.D. 11/29/2017 8:38 AM Dictated Date/Time: 11/29/2017 8:36 AM
== END | disposition home or self-care (01) ==
LOC: C.RADBC 07:45
PROVIDERS: ATTEND Urology
DX: N20.0 Calculus of kidney (principal)

== ENCOUNTER → 2018-01-28 | Outpatient (CLI) | payer OTHER ==
[2018-01-28 10:57] LABS: BASO % 0.7 %; BASO ABS # 0.03 K/uL (0-0.2); EOS ABS # 0.09 K/uL (0-0.5); HEMATOCRIT 40.6 % (42-52); HEMOGLOBIN 14.5 g/dL (14.0-18.0); LYMPH % 37.4 %; LYMPH ABS # 1.72 K/uL (1.2-3.4); MEAN CELL VOLUME 80.9 fL (80-100); MEAN CORPUSCULAR HEMOGLOBIN 28.9 pg (25-34); MEAN CORPUSCULAR HGB CONC 35.7 g/dl (32-36); MEAN PLATELET VOLUME 11.4 fL (7.4-10.4); MONO % 7.2 %; MONO ABS # 0.33 K/uL (0.11-0.59); NEUT % 52.7 %; NEUT ABS # 2.43 K/uL (1.4-6.5); PLATELET COUNT 228 K/uL (130-400); RED CELL DISTRIBUTION WIDTH CV 13.5 % (11.5-14.5); RED CELL DISTRIBUTION WIDTH SD 40.3 fL (36.4-46.3)
[2018-01-28 11:34] LABS: ALT/SGPT 36 U/L (12-78); AST/SGOT 29 U/L (15-37); BLOOD UREA NITROGEN 29 mg/dl (7-18); CARBON DIOXIDE 29 mmol/L (21-32); CREATININE 1.05 mg/dl (0.60-1.40); GLUCOSE 113 mg/dl (70-99); POTASSIUM 3.1 mmol/L (3.5-5.1); SODIUM 137 mmol/L (136-145)
[2018-01-28 11:44] LABS: CHOLESTEROL 142 mg/dl (0-200); LDL CHOLESTEROL CALCULATED 75 mg/dl
[2018-01-28 11:52] LABS: HEMOGLOBIN A1C 5.9 % (4.5-5.6)
== END | disposition home or self-care (01) ==
LOC: C.LABBC 07:35
PROVIDERS: ATTEND Internal Medicine
DX: E78.00 Pure hypercholesterolemia, unspecified (principal)

== ENCOUNTER → 2018-02-15 | Outpatient (CLI) | payer OTHER ==
--- NOTE | 2018-02-15 08:30 | DIAGNOSTIC IMAGING REPORT ---
KUB CLINICAL HISTORY: 62 years-old Male presenting with N20.0 Calculus of [id number]. TECHNIQUE: Single supine view of the abdomen was obtained. COMPARISON: 11/29/[address] from 02/19/2017. FINDINGS: Anastomotic suture lines project over the right lower quadrant. Moderate stool burden from the ascending through the descending colon. No bowel obstruction. No gross pneumoperitoneum. Redemonstration of the sizable calculus at the interpolar region of the right kidney. Punctate calculus at the upper pole of the left kidney. Additional calculus evident at the lower pole the left kidney. No convincing evidence of ureteral calculi. Calcification projecting over the midline pelvis is likely intraprostatic. Osseous structures normal. Lung bases clear. IMPRESSION: 1. Bilateral nephrolithiasis. This is unchanged from prior. Electronically signed by: Jeronimo Mosquera M.D. 02/15/2018 8:29 AM Dictated Date/Time: 02/15/2018 8:25 AM
== END | disposition home or self-care (01) ==
LOC: C.RAD 07:58
PROVIDERS: ATTEND Urology
DX: N20.0 Calculus of kidney (principal)

== ENCOUNTER 2025-08-18 18:38 | Observation (INO) ==
[2025-08-18] MEDS: OXYMETAZOLINE 0.05% 30 ML BTL ONE (18:59)
--- NOTE | 2025-08-18 19:06 | Emergency Department Note ---
Impression & Plan Epistaxis, Anemia, Hemoptysis ED Provider Note NAME: NYDIA COPELAND AGE: 69 SEX: M : 1955 ARRIVES VIA: Walk-In INFORMANT: [Patient][son] ED PROVIDER(S): [Jr Piper MD] CHIEF COMPLAINT: Nosebleed HISTORY OF PRESENT ILLNESS: The patient is a 69-year-old male who presents with epistaxis that has been starting and stopping since yesterday evening. He takes aspirin, no other blood thinning agents. There was no trauma to the nose. The bleeding started spontaneously. The patient states that he has had some blood running down his throat, he did vomit some blood prior to arrival. The patient has not had any syncope, he is not short of breath. No chest pain. He has had some nose bleeding before but nothing really to this extent. PMHx/PSHx/Social Hx: See Below PHYSICAL EXAM: GENERAL: Patient is in no acute distress. HEENT: No acute trauma, normocephalic atraumatic, mucous membranes moist, no nasal congestion. There is fullness in the area of the left nare, patient may have a polyp present. There is clot in the right nare. The patient has some fresh appearing blood around his lips and on his hands and chest. There is no active bleeding from the nose at this point, there is a clip in pace. NECK: No stridor, no adenopathy, no meningismus, trachea is midline. EXTREMITIES: No cyanosis, full range of motion of all the joints without pain or difficulty. NEUROLOGIC: Oriented x 3, no acute motor or sensory deficits, no focal weakness. DIFFERENTIAL DIAGNOSIS: Anemia, coagulopathy, thrombocytopenia, anterior or posterior epistaxis, among others. EMERGENCY DEPARTMENT PROCEDURES: MEDICAL DECISION MAKING: There is no leukocytosis. The patient does have anemia, his hemoglobin has dropped 2 points, likely from his epistaxis. There was a normal platelet count. No coagulopathy. No renal failure or significant electrolyte abnormality. On exam, the patient had some oozing of blood around his nares bilaterally. He had some blood to the posterior pharynx. He had some blood on his hands and his shirt. There was a nasal clip in place which seemed to be controlling the severe epistaxis. I did have the patient blow his nose and he was able to clear the right side of clot. He was unable to really blow from the left, possibly from the fullness/polyp noted. Afrin was applied to both sides of the nose and the nasal clip was reapplied for approximately 30 minutes. On reassessment, the patient seemed to have controlled bleeding but, additional Afrin was applied and the clip was again applied to the nose. On further reassessment, the patient was doing well, his bleeding seemed to be controlled. The clip was removed and no bleeding was seen after. There was no active bleeding down the posterior pharynx. Given the hemoptysis, the heavier bleeding for the past 24 hours, his hemoglobin drop, I do think he deserves admission/observation. He can be seen by ENT in the morning, possibly, there will be an area amenable to cautery. I did speak with the patient and case management, the on-call hospitalist was consulted. Prior/Outside records/notes reviewed: None Imaging/x-ray results per my interpretation: Chronic Medical/Social conditions affecting care: None Care/Management discussed with: Case management and the on-call hospitalist. Level of care consideration(s): After review of the information above and other included data: --I believe the patient requires escalation of care to admission DISPOSITION: Admission Past Med/Surg History Problem List (Updated 08/19/25 @ 12:00 by Jr Piper MD) Hemoptysis (Acute) Anemia (Acute) Epistaxis (Acute) Nasal polyposis Deviated nasal septum, congenital Decreased hemoglobin Epistaxis Enlarged prostate without lower urinary tract symptoms (luts) (Chronic) Hypercalciuria (Chronic) Esophageal reflux (Chronic) Chronic gastroesophageal reflux disease (Chronic) Hypercholesterolemia (Chronic) LVH (left ventricular hypertrophy) (Chronic) BPH (benign prostatic hyperplasia) On statin therapy due to risk of future cardiovascular event Moderate mitral regurgitation by prior echocardiogram Osteoporosis Prediabetes Medical History History of colon polyps Nephrolithiasis hx Surgical History History of open reduction and internal fixation (ORIF) procedure History of lithotripsy History of colonoscopy History of tooth extraction Family History Other Heart disease No family history of adverse response to anesthesia Denies family history of Ovarian cancer Prostate cancer Breast cancer Colorectal cancer Social History Smoking Status: Never smoker Second Hand Exposure: No; Do You Dip or Chew Tobacco: No; Hx Alcohol Use: No Hx Substance Use: No Preferred Language: Kosovan Communication Ability: Effective Visual Impairment: No Limitations Hearing Ability: Normal International Exchange Coordinator Required: No Beliefs That Will Affect Care: None marital status: Current Living Situation: Spouse Current Living Situation Comment: Lives with and 2 children. current occupational status: employed current occupation: employeed at [employer] Other Information That Helps Us Care for You: No Feels Safe at Home: Yes Safety Concerns: Feels Safe At This Time Childhood Exposure to Second-Hand Smoke: No caffeine: Yes Dental Care, Regularly: Yes Physical Activity Frequency: Daily Seatbelt Use: always Sunscreen Use: Yes Assistive Devices: Glasses Allergies Allergies Allergy/AdvReac Type Severity Reaction Status Date / Time No Known Allergies Allergy Verified 08/18/25 22:32 Home Meds Home Medications Medication Instructions Recorded Confirmed aspirin 81 mg tablet,delayed 81 mg PO QPM 02/24/19 08/18/25 release atorvastatin 80 mg tablet 80 mg PO HS 08/18/25 08/18/25 diphenhydramine HCl 25 mg tablet 25 mg PO HS 08/18/25 08/18/25 Previous Rx's Medication Instructions Recorded cholecalciferol (vitamin D3) 50 50 mcg PO DAILY #30 caps 01/30/22 mcg (2,000 unit) capsule chlorthalidone 25 mg tablet 12.5 mg (1/2 x 25 mg) PO QAM #45 01/22/25 tabs pantoprazole 20 mg tablet,delayed 20 mg PO Q2D #45 tabs 01/22/25 release diazepam 5 mg tablet 5 mg PO Q6H PRN flight related 06/22/25 anxiety #10 tabs fluticasone propionate 50 See Rx Instructions .Route 08/06/25 mcg/actuation nasal .COMPLEX #9.9 grams spray,suspension (Allergy Relief (fluticasone)) Results & Data (ED) Vital Signs Vital Signs - 24 hr 08/18/25 18:40 08/18/25 21:38 Temperature 36.6 C Temperature Source Skin Pulse Rate 60 Pulse Rate [Apical] 58 L Pulse Rhythm Regular Pulse Rhythm [Apical] Regular Pulse Strength Normal Pulse Strength [Apical] Normal Respiratory Rate 19 18 Respiratory Effort / Characteristics Non-Labored Spontaneous Non-Labored Spontaneous Respiratory Depth Normal Normal Respiratory Pattern Regular Blood Pressure 162/75 H Blood Pressure [Right Arm] 128/86 Blood Pressure Mean 104 Blood Pressure Mean [Right Arm] 100 Blood Pressure Position Sitting Pulse Oximetry 97 98 Oxygen Delivery Method Room Air Room Air Sepsis Recent Fever Within 48 Hours No Sepsis New/Unexplained Change in Mental Status N/A Sepsis Action Taken by Nursing No Action Required Home Medications Current Medication List: was personally reviewed by me Laboratory Data Attestation: I reviewed the patient's lab results. 08/19/25 06:49 08/18/25 19:10 Lab Results 08/18/25 Range/Units 19:10 WBC 7.11 (4.8-10.8) K/ul RBC 4.71 (4.70-6.10) M/uL Hgb 13.1 L (14.0-18.0) g/dl Hct 38.3 L (42.0-52.0) % MCV 81.3 (80.0-100.0) fL MCH 27.8 (25.0-34.0) pg MCHC 34.2 (32.0-36.0) g/dL RDW Std Deviation 37.0 (36.4-46.3) fL RDW Coeff of Johnathan 12.5 (11.5-14.5) % Plt Count 186 (130-400) K/uL MPV 10.7 (9.4-12.4) fL PT 11.3 (9.0-12.0) Seconds INR 1.0 (0.9-1.1) APTT 28 (21-31) Seconds PTT Ratio 1.0 Sodium 139 (136-145) mmol/L Potassium 3.8 (3.5-5.1) mmol/L Chloride 105 (98-107) mmol/L Carbon Dioxide 28 (21-32) mmol/L Anion Gap 6 (3-11) BUN 24 H (6-23) mg/dl Creatinine 0.63 (0.6-1.4) mg/dl Est Cr Clr Drug Dosing 94.7 ml/min eGFR 102.97 BUN/Creatinine Ratio 38.1 H (10-20) Glucose 125 H (70-99(Fasting)) mg/dl Calcium 9.2 (8.6-10.3) mg/dl Administered Medications Acetaminophen (Acetaminophen 325 Mg Tab) 650 mg PO Q4H PRN PRN Reason: Pain or Fever Stop: 09/18/25 01:22 Last Admin: 08/19/25 10:12 Dose: 650 mg Documented By: HOPE Chlorthalidone (Chlorthalidone 25 Mg Tab) [facility] [place] Stop: 09/18/25 08:59 Last Admin: 08/19/25 10:12 Dose: 12.5 mg Documented By: HOPE Diphenhydramine HCl (Diphenhydramine Capsule 25 Mg Cap) 25 mg PO [facility] Stop: 09/18/25 01:22 Last Admin: 08/19/25 01:59 Dose: 25 mg Documented By: SAL Melatonin (Melatonin 3 Mg Tab) 3 mg PO [facility] Stop: 09/17/25 23:24 Last Admin: 08/19/25 01:58 Dose: 3 mg Documented By: SAL Discontinued Medications Atorvastatin Calcium (Atorvastatin 40 Mg Tab) 80 mg PO NOW STA Stop: 08/18/25 23:23 Last Admin: 08/19/25 01:58 Dose: 80 mg Documented By: SAL Oxymetazoline HCl (Oxymetazoline 0.05% 30 Ml Btl) Confirm Administered Dose 150 sprays .ROUTE .STK-MED ONE Stop: 08/18/25 18:48 Last Admin: 08/18/25 18:59 Dose: 3 sprays Documented By: JARED Discharge Plan Visit Data Chief Complaint: Nose Bleed (Minor) Stated Complaint: THROWING UP BLOOD ED Provider: Jr Piper Discharge Problem: Epistaxis, Anemia, Hemoptysis Patient Disposition: Admitted As Inpatient Condition: Fair Discharge Instructions Interventions: ED Discharge Assessment Last Done: 08/19/25 00:54 Discharge Problem: Anemia Qualifiers: Anemia type: unspecified type Qualified Code(s): D64.9 - Anemia, unspecified
[2025-08-18 19:25] LABS: Hematocrit (blood only) 38.3 % (42.0-52.0); Hemoglobin 13.1 g/dl (14.0-18.0); Mean Corpuscular Hemoglobin 27.8 pg (25.0-34.0); Mean Corpuscular Volume 81.3 fL (80.0-100.0); Platelet Count 186 K/uL (130-400); RDW Standard Deviation 37.0 fL (36.4-46.3); Red Blood Count 4.71 M/uL (4.70-6.10); White Blood Count 7.11 K/ul (4.8-10.8)
[2025-08-18 19:43] LABS: Anion Gap 6.0 (3-11); Blood Urea Nitrogen 24.0 mg/dl (6-23); Calcium 9.2 mg/dl (8.6-10.3); Carbon Dioxide 28.0 mmol/L (21-32); Chloride 105.0 mmol/L (98-107); Creatinine Clr Calc Pharmacy 94.7 ml/min; Glucose 125.0 mg/dl (70-99(Fasting)); Potassium 3.8 mmol/L (3.5-5.1); Sodium 139.0 mmol/L (136-145)
[2025-08-18 19:57] LABS: INR 1.0 (0.9-1.1); Partial Thromboplastin Time 28 Seconds (21-31); Prothrombin Time 11.3 Seconds (9.0-12.0)
--- NOTE | 2025-08-18 23:21 | History & Physical Report ---
Date of Service August 18, 2025 Assessment & Plan (1) Epistaxis: (2) Decreased hemoglobin: (3) Moderate mitral regurgitation by prior echocardiogram: (4) Hypercholesterolemia: Plan Patient is a 69-year-old male with past medical history of BPH with LUTS, GERD, HTN, moderate mitral regurg. Patient presented due to a nosebleed x 24 hours and hematemesis x 1. It was noted that his hemoglobin dropped from 15.1 to 13.1 however patient is asymptomatic with this. He is being admitted for observation for hemoglobin trend and to have ENT consult. #epistaxis - Hgb drop from 15.1 -> 13.1; asymptomatic. Resolved at time of admission after Afrin x1 in ED. - repeat CBC with AM labs - ENT consulted; will evaluate patient in AM 08/19 - hold HS baby aspirin 08/18 #HTN/HLD/moderate mitral regurgitation - continue statin and chlorthalidone #insomnia - continue Benadryl HS and melatonin HS VTE ppx: SCDs, defer chemical with bleeding Dispo: med surg, obs - anticipate dc home 08/19 after ENT eval Admission and Anticipated Discharge Date Admission Date: 08/18/25 History of Present Illness Chief Complaint: nose bleed Primary Care Provider: Jackie Menezes MD Patient is a 69-year-old male with past medical history of BPH with LUTS, GERD, HTN, moderate mitral regurg. Patient presented due to a nosebleed x 24 hours and hematemesis x 1. It was noted that his hemoglobin dropped from 15.1-13.1 however patient is asymptomatic with this. He is being admitted for observation for hemoglobin trend and to have ENT consult. Patient seen at bedside. He stated last night his nose began to bleed and persisted throughout the day today. He has had nosebleeds previously but never to this extent. Nosebleed relieved with Afrin x 1 in the ED. He also noted to have vomited blood 1 time at home, no recurrence since. He is on baby aspirin however no anticoagulation. He denies any syncope, chest pain, shortness of breath, dizziness, lightheadedness, nausea. He is due for his evening medications however like to decline baby aspirin at this time after bleeding. He wishes to be full code. Handoff from ER provider stated that they spoke with ENT specialist who will evaluate the patient in the morning. Allergies Allergy/AdvReac Type Severity Reaction Status Date / Time No Known Allergies Allergy Verified 08/18/25 22:32 Home Medications Medication Instructions Recorded Confirmed Type aspirin 81 mg tablet,delayed 81 mg PO QPM 02/24/19 08/18/25 History release cholecalciferol (vitamin D3) 50 50 mcg PO DAILY #30 caps 01/30/22 08/18/25 Rx mcg (2,000 unit) capsule chlorthalidone 25 mg tablet 12.5 mg (1/2 x 25 mg) PO QAM #45 01/22/25 08/18/25 Rx tabs pantoprazole 20 mg tablet,delayed 20 mg PO Q2D #45 tabs 01/22/25 08/18/25 Rx release diazepam 5 mg tablet 5 mg PO Q6H PRN flight related 06/22/25 08/18/25 Rx anxiety #10 tabs fluticasone propionate 50 See Rx Instructions .Route 08/06/25 08/18/25 Rx mcg/actuation nasal .COMPLEX #9.9 grams spray,suspension (Allergy Relief (fluticasone)) atorvastatin 80 mg tablet 80 mg PO HS 08/18/25 08/18/25 History diphenhydramine HCl 25 mg tablet 25 mg PO HS 08/18/25 08/18/25 History Past Med/Surg History Problem List (Updated 08/18/25 @ 23:34 by Olimpia Han PA-C) Decreased hemoglobin Epistaxis Enlarged prostate without lower urinary tract symptoms (luts) (Chronic) Hypercalciuria (Chronic) Esophageal reflux (Chronic) Chronic gastroesophageal reflux disease (Chronic) Hypercholesterolemia (Chronic) LVH (left ventricular hypertrophy) (Chronic) BPH (benign prostatic hyperplasia) On statin therapy due to risk of future cardiovascular event Moderate mitral regurgitation by prior echocardiogram Osteoporosis Prediabetes Medical History History of colon polyps Nephrolithiasis Surgical History History of open reduction and internal fixation (ORIF) procedure History of lithotripsy History of colonoscopy History of tooth extraction Family History Other Heart disease No family history of adverse response to anesthesia Denies family history of Ovarian cancer Prostate cancer Breast cancer Colorectal cancer Social History (Reviewed 05/14/25 @ 11:28 by Liz Olson Smoking Status: Never smoker Second Hand Exposure: No; Do You Dip or Chew Tobacco: No; Hx Alcohol Use: No Hx Substance Use: No Preferred Language: Turkmen Communication Ability: Effective Visual Impairment: No Limitations Hearing Ability: Normal Master Naval Parachutist Required: No Beliefs That Will Affect Care: None marital status: Current Living Situation: Spouse Current Living Situation Comment: Lives with and 2 children. current occupational status: employed current occupation: employeed at [employer] Other Information That Helps Us Care for You: No Feels Safe at Home: Yes Safety Concerns: Feels Safe At This Time Childhood Exposure to Second-Hand Smoke: No caffeine: Yes Dental Care, Regularly: Yes Physical Activity Frequency: Daily Seatbelt Use: always Sunscreen Use: Yes Assistive Devices: Glasses Review of Systems Review of Systems: see HPI Physical Exam Physical Exam: The patient is awake, alert and oriented 3, well developed and well nourished, normocephalic and atraumatic, in no acute distress. Non-toxic appearing. HEENT- EOMI, mucous membranes moist. Hearing grossly intact. Heart-normal S1 and S2. No murmurs, rubs or gallops. Lungs-clear bilaterally, no respiratory distress, no accessory muscle use. Abdomen-normal bowel sounds and soft. No ascites noted. Non-tender. Extremities- no clubbing, cyanosis, or edema. Rheumatologic-normal range of motion. Psychiatric-normal affect. Results & Data Results & Data Vital Signs (Past 12 Hours) Vital Signs Temp Pulse Pulse Resp BP BP Pulse Ox 08/18/25 21:38 58 L 18 128/86 98 08/18/25 18:40 36.6 C 60 19 162/75 H 97 O2 Del Method 08/18/25 21:38 Room Air 08/18/25 18:40 Room Air Laboratory Results reviewed CBC, CMP, pt/inr Medications Administered ED - afrin x1 Code Status & VTE Plan Code Status full code VTE Prophylaxis Plan VTE Prophylaxis will be ordered: Yes Supervising Physician Co-Signing Physician Notes Attending addendum: I have physically seen this patient, have supervised the CARL's activities, and agree with the H&P unless as otherwise noted. Assessment and Plan: The patient is a 69-year-old male with past medical history including BPH with LUTS, GERD, hypertension and moderate MR. He presented to the emergency department due to a nosebleed over the past 24 hours at home, and hematemesis x 1. His hemoglobin dropped from 15.1-13.1, however, he does not have a symptomatic anemia. ENT was consulted over the phone by ED physician, requested the patient be admitted to the [facility] service for consult ENT. Epistaxis- Hemoglobin dropped 2 g from 15.1-13.1 but patient is asymptomatic Repeat laboratories in a.m. Consult ENT Dr. Felder Last dose of baby aspirin was 08/11 7 AM Hypertension/moderate MR- Continue chlorthalidone Hyperlipidemia- Continue atorvastatin remaining orders and notations as noted PG Care Time/CCT Total # of Minutes Spent Total Time Spent with Patient: Total time spent is greater than 50% in coordination of care (as documented) at patient's floor/unit and/or counseling patient: Coding Level of Care Code 36726 INT INP/OBS CARE 3/75MIN Diagnoses Epistaxis R04.0 Decreased hemoglobin R71.0 Moderate mitral regurgitation by prior echocardiogram I34.0 Hypercholesterolemia E78.00
[2025-08-19] MEDS ORDERED: DOCUSATE SODIUM 100 MG CAP PO PRN (01:23)
[2025-08-19] MEDS ORDERED: ONDANSETRON INJ 2 MG/ML 2 ML VIAL IV PRN (01:23)
[2025-08-19 01:44] VITALS: RESP 16
[2025-08-19] MEDS: ATORVASTATIN 40 MG TAB PO STA (01:58)
[2025-08-19] MEDS: MELATONIN 3 MG TAB PO SCH (01:58)
[2025-08-19] MEDS: diphenhydrAMINE Capsule 25 MG CAP PO SCH (01:59)
--- NOTE | 2025-08-19 06:40 | ENT Consultation ---
Date of Consultation August 19, 2025 Assessment & Plan (1) Epistaxis: (2) Decreased hemoglobin: (3) Deviated nasal septum, congenital: (4) Nasal polyposis: Plan Epistaxis - stable, not actively bleeding - Advised re topical emollients, saline - RTC / ED for ongoing bleeding - No nose blowing x 72 hrs - Can see in office if recurs during daytime hours DNS - not an acute issue Left nasal mass / presumed polyp - I think this should come out for breathing and for diagnostic purposes. We had a preliminary conversation about the surgery which tentatively I would plan for mid August. I'd like to get him a CT first while he is here and then a f/u appt this week in clinic. We will call him to set up the clinic appt. History of Present Illness Reason for Consultation: Epistaxis / decreased hemoglobin (13.1) Attending Physician: Syd Zarate MD History of Present Illness 69-year-old male with past medical history of BPH with LUTS, GERD, HTN, moderate mitral regurg. Patient presented due to a nosebleed x 24 hours and hematemesis x 1. It was noted that his hemoglobin dropped from 15.1 to 13.1 however patient is asymptomatic with this. He is being admitted for observation for hemoglobin trend and to have ENT consult. - no prior hx same - no prior nasal surgery - takes baby asa (held) - unclear about originating side - settled w nasal clamp/clip (pressure) and afrin - held for observation for Hgb trend and hx mitral regurg - people typically tell him he "sounds like he has a cold" - no visual symptoms, no dental issues, no facial numbness - admits to nawo worse on left - no hx nasal trauma or prior surgery on nose - no envir allergies - no bleeding of note overnight - generally decent health - no signif CV/RS hx (aside from MR). 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 [place] - lives in [facility] - Hgb this am 12.7 Allergies Allergy/AdvReac Type Severity Reaction Status Date / Time No Known Allergies Allergy Verified 08/18/25 22:32 Home Medications Medication Instructions Recorded Confirmed Type aspirin 81 mg tablet,delayed 81 mg PO QPM 02/24/19 08/18/25 History release cholecalciferol (vitamin D3) 50 50 mcg PO DAILY #30 caps 01/30/22 08/18/25 Rx mcg (2,000 unit) capsule chlorthalidone 25 mg tablet 12.5 mg (1/2 x 25 mg) PO QAM #45 01/22/25 08/18/25 Rx tabs pantoprazole 20 mg tablet,delayed 20 mg PO Q2D #45 tabs 01/22/25 08/18/25 Rx release diazepam 5 mg tablet 5 mg PO Q6H PRN flight related 06/22/25 08/18/25 Rx anxiety #10 tabs fluticasone propionate 50 See Rx Instructions .Route 08/06/25 08/18/25 Rx mcg/actuation nasal .COMPLEX #9.9 grams spray,suspension (Allergy Relief (fluticasone)) atorvastatin 80 mg tablet 80 mg PO HS 08/18/25 08/18/25 History diphenhydramine HCl 25 mg tablet 25 mg PO HS 08/18/25 08/18/25 History Patient History Medical History History of colon polyps Nephrolithiasis hx Surgical History History of open reduction and internal fixation (ORIF) procedure History of lithotripsy History of colonoscopy History of tooth extraction Family History Other Heart disease No family history of adverse response to anesthesia Denies family history of Ovarian cancer Prostate cancer Breast cancer Colorectal cancer Social History Smoking Status: Never smoker Second Hand Exposure: No; Do You Dip or Chew Tobacco: No; Hx Alcohol Use: No Hx Substance Use: No Preferred Language: Thai Communication Ability: Effective Visual Impairment: No Limitations Hearing Ability: Normal Masseur/Masseuse Required: No Beliefs That Will Affect Care: None marital status: Current Living Situation: Spouse Current Living Situation Comment: Lives with and 2 children. current occupational status: employed current occupation: employeed at [employer] Other Information That Helps Us Care for You: No Feels Safe at Home: Yes Safety Concerns: Feels Safe At This Time Childhood Exposure to Second-Hand Smoke: No caffeine: Yes Dental Care, Regularly: Yes Physical Activity Frequency: Daily Seatbelt Use: always Sunscreen Use: Yes Assistive Devices: Glasses Review of Systems Ear, Nose, Mouth, Throat: as per Subjective / HPI Physical Exam Physical Exam: General: No acute distress, nonlabored respirations Face: normal facial motion Eyes: Extraocular motion is intact. Normal sclera and conjunctiva Ears: External auditory canals are clear. Tympanic membrane is intact and the middle ear is aerated bilaterally. Nose: Severe anterocaudal septal rotation to RIGHT. Dried blood along rt septum - no active bleeding, no single focus / site. VERY large mass (clinically suggestive of nasal polyp) on lt side of nose - grade 4 Oral cavity: clear Oropharynx: clear Neck: soft, no masses or lymphadenopathy Results & Data Vital Signs (Past 12 Hours) Vital Signs Temp Pulse Pulse Pulse Resp BP BP 08/19/25 01:30 36.5 C 60 16 126/71 08/18/25 21:38 58 L 18 128/86 08/18/25 18:40 36.6 C 60 19 162/75 H Pulse Ox O2 Del Method 08/19/25 01:30 99 Room Air 08/18/25 21:38 98 Room Air 08/18/25 18:40 97 Room Air Laboratory Results 08/18/25 19:10 WBC 7.11 RBC 4.71 Hgb 13.1 L Hct 38.3 L MCV 81.3 MCH 27.8 MCHC 34.2 RDW Std Deviation 37.0 RDW Coeff of Johnathan 12.5 Plt Count 186 MPV 10.7 PT 11.3 INR 1.0 APTT 28 PTT Ratio 1.0 Sodium 139 Potassium 3.8 Chloride 105 Carbon Dioxide 28 Anion Gap 6 BUN 24 H Creatinine 0.63 Est Cr Clr Drug Dosing 94.7 eGFR 102.97 BUN/Creatinine Ratio 38.1 H Glucose 125 H Calcium 9.2 PG Care Time/CCT Total # of Minutes Spent Total Time Spent with Patient: Total time spent is greater than 50% in coordination of care (as documented) at patient's floor/unit and/or counseling patient: Coding Level of Care Code 93284 IN/OBS CONSULT LVL 4,60M Diagnoses Epistaxis R04.0 Decreased hemoglobin R71.0 Deviated nasal septum, congenital Q67.4 Nasal polyposis J33.9
[2025-08-19 07:07] LABS: Hematocrit (blood only) 37.3 % (42.0-52.0); Hemoglobin 12.7 g/dl (14.0-18.0); Immature Granulocytes # (auto) 0.02 K/uL (0.01-0.20); Immature Granulocytes % (auto) 0.2 %; Mean Corpuscular Hemoglobin 28.0 pg (25.0-34.0); Mean Corpuscular Volume 82.2 fL (80.0-100.0); Platelet Count 188 K/uL (130-400); RDW Standard Deviation 38.2 fL (36.4-46.3); Red Blood Count 4.54 M/uL (4.70-6.10); White Blood Count 9.16 K/ul (4.8-10.8)
[2025-08-19] MEDS: CHLORTHALIDONE 25 MG TAB PO SCH (10:12)
[2025-08-19] MEDS: ACETAMINOPHEN 325 MG TAB PO PRN (10:12)
--- NOTE | 2025-08-19 12:00 | CT Scan Report ---
EXAM: CT sinus fusion wo con CLINICAL HISTORY: Large left nasal mass (?polyp). Surgical planning TECHNIQUE: CT scan of the paranasal sinuses was performed without the administration of intravenous contrast. Axial images were obtained from the frontal sinuses to the hard palate. Coronal and sagittal reformatted images were also reviewed. One of the following dose reduction techniques was utilized for this exam: automated exposure control, adjustment of the mA and/or kV according to patient size, and use of iterative reconstruction. COMPARISON: No previous studies are available for comparison. FINDINGS: There is marked polypoidal mucosal thickening involving the left maxillary and ethmoidal sinuses and the left nasal cavity, which merges with the left nasal conchae and causes rarefaction of their bony borders. It obliterates the anterior and posterior nares and markedly encroaches upon and compromises the nasopharyngeal airway, merging with the posterior nasopharyngeal wall. Frontal Sinuses: Mild left mucosal thickening is present, with no fluid levels. The right frontal sinus is clear. The sinus abebe are intact, without signs of erosion or fracture. Ethmoid Sinuses: The ethmoid air cells are clear, with no evidence of mucosal thickening or fluid levels. The bony septa are intact. There is no evidence of polyps or masses. Maxillary Sinuses: The right maxillary sinus is well-aerated, with no mucosal thickening or fluid levels. The sinus abebe are intact, without signs of erosion or fracture. Sphenoid Sinuses: Mild left mucosal thickening is present, with no fluid levels. The right sphenoid sinus is clear. The sinus abebe are intact, without signs of erosion or fracture. Nasal Cavity: The right nasal cavity is normal, with no evidence of masses or polyps. There is right-sided nasal septal deviation with a bony spur. Ostiomeatal Complexes: The ostiomeatal complexes are patent on the right and obliterated on the left. Orbits: The orbits are normal in size and shape. The extraocular muscles are symmetric and normal. The optic nerves are normal in appearance. Hard Palate and Dental Structures: The hard palate is intact, with no evidence of bony defects. The visualized dental structures are unremarkable, with no evidence of periapical pathology. Additional Findings: Moderate left mastoiditis is present. No other significant findings are noted in the visualized soft tissue structures or bony elements. IMPRESSION: 1. There is marked polypoidal mucosal thickening involving the left maxillary and ethmoidal sinuses and the left nasal cavity, which merges with the left nasal conchae and causes rarefaction of their bony borders. It obliterates the anterior and posterior nares and markedly encroaches upon and compromises the nasopharyngeal airway, merging with the posterior nasopharyngeal wall. The picture likely represents sinonasal polyposis. 2. Moderate left mastoiditis. Electronically signed by Ventura Roberson 08-19-2025 11:58 AM
[2025-08-19 13:29] VITALS: BP 132/69; PULSE 52; TEMP 97.7; O2SAT 99
--- NOTE | 2025-08-19 14:14 | Discharge Summary ---
Discharge Summary Date of Service August 19, 2025 Principal Dx & Hospital Course #1 = Principal Diagnosis (1) Epistaxis: (2) Decreased hemoglobin: (3) Moderate mitral regurgitation by prior echocardiogram: (4) Hypercholesterolemia: Plan Patient is a 69-year-old male with past medical history of BPH with LUTS, GERD, HTN, moderate mitral regurg. Patient presented due to a nosebleed x 24 hours and hematemesis x 1. It was noted that his hemoglobin dropped from 15.1 to 13.1 however patient is asymptomatic with this. He is being admitted for observation for hemoglobin trend and to have ENT consult. #Epistaxis - Hgb drop from 15.1 -> 13.1; asymptomatic. Resolved at time of admission after Afrin x1 in ED. Hgb is low, but stable at 12.7 on the morning of discharge Active bleeding has resolved ENT consult appreciated Sinus CT consistent with sinonasal polyposis Patient require follow-up with ENT (Dr. Felder) Tentative surgery planned for August for left nasal mass/presumed polyp Recommend follow-up H&H as an outpatient to ensure stability Patient reports aspirin is taken for primary prophylaxis (patient preference) No h/o heart stents or CAD to his knowledge Will plan to hold aspirin until seen for follow-up #HTN/HLD/moderate mitral regurgitation Continue statin and chlorthalidone #Insomnia Continue Benadryl HS and melatonin HS Day of discharge 08/19: Patient is mildly bradycardic at 52 bpm; vitals otherwise stable. Mr. Bernard is sitting upright in bed eating a lunch. He reports he is doing well this morning. No acute distress. His nosebleed subsided around 9 PM last night, and he has reported no recurrence this morning. No pain in his nose. He was seen by the ENT specialist today, who plans to schedule a follow-up this week. In regard to his aspirin use, he reports he takes a baby aspirin daily because of his "age". He denies past medical history of coronary artery diseas e, heart stents, strokes, TIAs, or MIs. Patient reports he is asymptomatic at this time, and is hoping to go home today. ROS: Patient denies nose pain, recurrence of nosebleed, fever, chills, night sweats, dizziness/lightheadedness, headaches, changes in hearing or vision, tinnitus, sore throat, difficulty swallowing, chest pain, SOB, cough, pleuritic CP, abdominal pain, or nausea/vomiting. Disposition: Discharge home with close ENT follow-up Notes For Next Care Provider Patient hospitalized for nosebleed. This resolved after being given Afrin spray and nasal clamp in the ED. No active bleed at time of discharge. No nasal pain. Patient will follow-up with ENT (Dr. Charles) in the outpatient setting to plan on surgery for left nasal mass/polyp. Recommend to repeat H&H as an outpatient to ensure stability of hemoglobin. Hemoglobin level is 12.7 at time of discharge. Hold aspirin until seen by ENT for follow-up. Admission HPI Per Admitting Provider Patient is a 69-year-old male with past medical history of BPH with LUTS, GERD, HTN, moderate mitral regurg. Patient presented due to a nosebleed x 24 hours and hematemesis x 1. It was noted that his hemoglobin dropped from 15.1-13.1 however patient is asymptomatic with this. He is being admitted for observation for hemoglobin trend and to have ENT consult. Patient seen at bedside. He stated last night his nose began to bleed and persisted throughout the day today. He has had nosebleeds previously but never to this extent. Nosebleed relieved with Afrin x 1 in the ED. He also noted to have vomited blood 1 time at home, no recurrence since. He is on baby aspirin however no anticoagulation. He denies any syncope, chest pain, shortness of breath, dizziness, lightheadedness, nausea. He is due for his evening medications however like to decline baby aspirin at this time after bleeding. He wishes to be full code. Handoff from ER provider stated that they spoke with ENT specialist who will evaluate the patient in the morning. Admission Exam Per Admitting Provider The patient is awake, alert and oriented 3, well developed and well nourished, normocephalic and atraumatic, in no acute distress. Non-toxic appearing. HEENT- EOMI, mucous membranes moist. Hearing grossly intact. Heart-normal S1 and S2. No murmurs, rubs or gallops. Lungs-clear bilaterally, no respiratory distress, no accessory muscle use. Abdomen-normal bowel sounds and soft. No ascites noted. Non-tender. Extremities- no clubbing, cyanosis, or edema. Rheumatologic-normal range of motion. Psychiatric-normal affect. Discharge Exam General: no acute distress; pleasant affect; non-toxic appearing; cooperative; SpO2 99% on RA HEET: normocephalic, atraumatic; PERRLA; oral mucosa coral pink; oropharynx without signs of erythema or exudates; vision and hearing intact; Nose: The right nasal passage is patent with dried blood around the septum; the left nasal passages occluded by large mass (presumed nasal polyp); no active bleeding Neck: supple; trachea midline Skin: warm, dry without signs of tenting; no cyanosis; no rashes, bruising, lesions, or erythema noted CV: chest wall NTP; RRR; S1/S2 normal; no murmurs/rubs/gallops; pulses intact and symmetric at radial, DP, and PT Lungs: no acute respiratory distress; symmetrical chest wall expansion; clear breath sounds across all lung camacho w/o adventitious sounds; no wheezing ABD: Soft, NTP; BS present; no rebound/guarding; no distention MSK: no tics or fasciculations; no edema noted in the LEs b/l, nonerythematous Neuro: A&Ox3; normal mood and affect; fluent speech; sensation intact and symmetric in the LEs b/l Discharge Plan Discharge Items Patient Disposition: Home - Self-Care Reason For Visit: NOSE BLOOD Discharge Diagnosis: Epistaxis Condition on Discharge: Fair Activity: Resume your previous activity Non-emergency contact: Primary Care Provider Call non-emergency contact if: you have any medication questions, your symptoms worsen and your pain is not controlled Follow-up/Referrals: Jackie Menezes MD [Primary Care Provider] - Diet: Regular Addtl Attending Provider Instructions: You were hospitalized at [facility] from 08/18 - 08/19 due to a nosebleed. This bleeding resolved shortly after receiving Afrin spray and a n saurabh clamp in the emergency department. Over the course of your hospital stay, your hemoglobin levels remained low, but stable (for reference range and normal hemoglobin is 14-18; your hemoglobin level is currently 12.7 at time of discharge). You were seen by our ears, nose, and throat specialist (Dr. Felder) who ordered CT imaging of your sinuses. This imaging revealed that that you have polyps in your nose, which may tentatively require surgery in August. Please plan to follow-up with ENT at your appointment on Friday, August 22, 2025. Given your vitals are currently stable, and you report no active bleeding/pain, we feel that you are safe to return home at this time. You reported that you had no prior history of heart stents, CAD, strokes, or heart attacks. We recommend that you hold aspirin until seen by ENT for follow-up on Wednesday. You are okay to resume all other medications upon discharge. If you develop any new or worsening symptoms, such as recurrent/intractable nosebleeds, nasal pain, difficulty breathing, lightheadedness, fainting, or fever/chills, please return to the emergency department immediately. It was a pleasure taking care of you. Please reach out with any questions or concerns. Sincerely, The Hospital medicine team at [facility] Pending Studies at Discharge: No Stand-Alone Forms: My [facility] Medications and DC Order Prescriptions: Continued cholecalciferol (vitamin D3) 50 mcg (2,000 unit) capsule 50 mcg PO DAILY Qty: 30 0RF diazepam 5 mg tablet 5 mg PO Q6H PRN (Reason: flight related anxiety) Qty: 10 0RF fluticasone propionate [Allergy Relief (fluticasone)] 50 mcg/actuation spray,suspension See Rx Instructions .Route .COMPLEX Qty: 9.9 2RF Rx Instructions: administer into each nostril 2 sprays BID x 3 days then 2 sprays each nostril at Bedtime thereafter chlorthalidone 25 mg tablet 12.5 mg PO QAM Qty: 45 3RF pantoprazole 20 mg tablet,delayed release (DR/EC) 20 mg PO Q2D Qty: 45 3RF atorvastatin 80 mg tablet 80 mg PO HS diphenhydramine HCl 25 mg Tablet 25 mg PO HS Held aspirin 81 mg Tablet,Delayed Release (Dr/Ec) 81 mg PO QPM Hold Instructions: Resume on 08/23/25. Hold until seen by ENT for follow-up Discharge Orders: Discharge Order (Routine); Ordered 08/19/25 Ordered By: Alex Rubin/Other Patient Handouts: Nosebleed Admission Data Admit Date/Time: 08/18/25 23:26 Attending Provider: Syd Zarate Admit Provider: Elroy Wells Primary Care Provider: Jackie Menezes Other Providers: Elroy Wells; Kodak Felder Hospital Stay Data Consultations 08/18/25 22:21 ED Decision to Admit Stat 08/19/25 01:23 Consult Otolaryngology (Head and Neck) Routine Diagnostic Imagining Performed 08/19/25 10:04 CT sinus fusion wo con Routine Pending Results Patient Have Any Pending Studies at Discharge: No Discharge Instructions Given to Patient (Per Discharging Provider) You were hospitalized at [facility] from 08/18 - 08/19 due to a nosebleed. This bleeding resolved shortly after receiving Afrin spray and a nasal clamp in the emergency department. Over the course of your hospital stay, your hemoglobin levels remained low, but stable (for reference range and normal hemoglobin is 14-18; your hemoglobin level is currently 12.7 at time of discharge). You were seen by our ears, nose, and throat specialist (Dr. Felder) who ordered CT imaging of your sinuses. This imaging revealed that that you have polyps in your nose, which may tentatively require surgery in August. Please plan to follow-up with ENT at your appointment on Wednesday, August 22, 2025. Given your vitals are currently stable, and you report no active bleeding/pain, we feel that you are safe to return home at this time. You reported that you had no prior history of heart stents, CAD, strokes, or heart attacks. We recommend that you hold aspirin until seen by ENT for follow-up on Wednesday. You are okay to resume all other medications upon discharge. If you develop any new or worsening symptoms, such as recurrent/intractable nosebleeds, nasal pain, difficulty breathing, lightheadedness, fainting, or fever/chills, please return to the emergency department immediately. It was a pleasure taking care of you. Please reach out with any questions or concerns. Sincerely, The Hospital medicine team at [facility] Total Time Total Time Spent Total Time Spent (In Minutes): 25 Coding [place] [address] IN/OBS DISCH 30 MIN/LESS Patient Type Established History Detailed Exam Detailed Medical Decision Making Low Complexity Diagnoses Epistaxis R04.0 Decreased hemoglobin R71.0 Moderate mitral regurgitation by prior echocardiogram I34.0 Hypercholesterolemia E78.00
[2025-08-19] MEDS ORDERED: ATORVASTATIN 40 MG TAB PO SCH (21:00)
== END 2025-08-19 15:15 | disposition home or self-care (01) ==
LOC: SUATTDRO → 3E 18:38 → ED 18:38 → SUATTDRO 23:26 → 3E 08-19 00:54